=== PATIENT | female | born 1930 | race Hispanic/Latino ===

== ENCOUNTER 2018-04-03 14:00 | Inpatient (IN) | payer MEDICARE ==
[~2018-04-03] VITALS: Ht 157.5 cm; Wt 50.9 kg
[2018-04-03 13:13] LABS: APPEARANCE,URINE Clear (CLEAR); BILIRUBIN,URINE Negative (NEGATIVE); COLOR,URINE Yellow (YELLOW); GLUCOSE, URINE (UA) Negative (NEGATIVE); KETONES,URINE Negative (NEGATIVE); LEUKOCYTE ESTERASE ,URINE Large (NEGATIVE); NITRATE,URINE Positive (NEGATIVE); OCCULT BLOOD,URINE Small (NEGATIVE); PH,URINE 8.5 (5.0-8.0); PROTEIN,URINE Negative (NEGATIVE); UROBILINOGEN,URINE 0.2 mg/dL (0.2-1.0)
[2018-04-03 13:13] LABS: BASOPHILS % (AUTO) 0.4 % (0.0-5.0); EOSINOPHILS % (AUTO) 1.2 % (0.0-8.0); HEMATOCRIT 36.7 % (36-48); LYMPHOCYTES % (AUTO) 10.5 % (21.0-51.0); MEAN CORPUSCULAR HEMOGLOBIN 29.5 pg (27.0-33.0); MEAN CORPUSCULAR HGB CONC 32.7 g/dL (32.0-36.0); MEAN CORPUSCULAR VOLUME 90.1 fL (79-99); MONOCYTES % (AUTO) 3.5 % (3.0-13.0); NEUTROPHILS % (AUTO) 84.4 % (40.0-77.0); PLATELET COUNT (AUTO) 191 K/uL (130-400); RED BLOOD CELL COUNT(AUTO) 4.08 MIL/uL (4.00-5.50); RED CELL DISTRIBUTION WIDTH 14.8 % (11.0-15.5); WHITE BLOOD COUNT (AUTO) 6.3 K/uL (4.8-10.8)
[2018-04-03 13:19] LABS: CREATININE 0.8 mg/dL (0.5-1.5)
[2018-04-03 13:21] VITALS: BP 138/64
[2018-04-03 13:21] LABS: MUCUS,URINE Rare LPF (None Seen); SQUAMOUS EPITHELIAL CELL,UR Rare /HPF (0-2)
[2018-04-03 13:24] LABS: BACTERIA,URINE Moderate /HPF (None Seen)
[2018-04-03 13:28] LABS: INR 1.01 (0.85-1.15); PARTIAL THROMBOPLASTIN TIME 24.5 SEC (26.3-35.5); PROTHROMBIN TIME 10.6 SEC (9.6-11.6)
[2018-04-03] MEDS ORDERED: LEVO100T12 PO (14:25)
[2018-04-03] MEDS ORDERED: LOSA100T20 PO (14:25)
[2018-04-03] MEDS ORDERED: SOLI5 PO (14:25)
[2018-04-03] MEDS ORDERED: DILT240T13 PO (14:25)
[2018-04-03] MEDS ORDERED: SIMV20TA6 PO (14:25)
[2018-04-03] MEDS ORDERED: PRED1TAB PO (14:25)
[2018-04-04] MEDS: CEFAZOLIN SODIUM 1 GM VIAL IVP SCH (16:45)
[2018-04-05] MEDS: CEFAZOLIN SODIUM 1 GM VIAL IVP SCH (16:45)
[2018-04-06] VITALS (21 sets, daily range): BP systolic 115–166; BP diastolic 44–77
[2018-04-06] MEDS ORDERED: LACTATED RINGERS 1000ML 1,000 ML IV ONE (07:52)
[2018-04-06] MEDS: CEFAZOLIN SODIUM 1 GM VIAL IVP SCH ×5 (08:30→17:28)
[2018-04-06] MEDS ORDERED: ACETAMINOPHEN EXTRA STRENGTH 500 MG TABLET ONE (08:40)
[2018-04-06] MEDS ORDERED: KETOROLAC TROMETHAMINE 15MG/ML ONE (08:40)
[2018-04-06] MEDS ORDERED: OXYCODONE HCL 10 MG TAB.SR.12H PO ONE (08:41)
[2018-04-06] MEDS ORDERED: CELECOXIB 200 MG CAP ONE (08:41)
[2018-04-06] MEDS ORDERED: SCOPOLAMINE HYDROBROMIDE 1 EACH ADH..PATCH TD ONE (08:48)
[2018-04-06] MEDS: GENTAMICIN SULFATE 240 MG in SODIUM CHLORIDE 0.9% 100 ML IV SCH (09:02)
[2018-04-06] MEDS ORDERED: LIDOCAINE PF 2% 5ML ABBOJECT ONE (09:28)
[2018-04-06] MEDS ORDERED: DEXAMETHASONE SOD PHOSPHATE 10MG/ML 1ML VIAL ONE (09:28)
[2018-04-06] MEDS ORDERED: ONDANSETRON HCL 4 MG/2 ML VIAL ONE (09:28)
[2018-04-06] MEDS ORDERED: MIDAZOLAM HCL 1 MG/ML 2ML VIAL ONE (09:29)
[2018-04-06] MEDS ORDERED: PROPOFOL 10 MG/ML 20ML VIAL IV ONE (09:29)
[2018-04-06] MEDS ORDERED: FENTANYL CITRATE PF 50 MCG/1 ML 2ML VIAL ONE (09:30)
[2018-04-06] MEDS ORDERED: BUPIVACAINE/EPI/PF 0.5% 30ML VIAL IJ ONE (09:55)
[2018-04-06] MEDS: TRANEXAMIC ACID 1000MG/10ML IV ONE ×2 (10:05→12:30)
[2018-04-06] MEDS ORDERED: ROCURONIUM 10MG/1ML SYR 10 MG/ML ML ONE (10:13)
[2018-04-06] MEDS ORDERED: EPHEDRINE SULFATE 50 MG/ML AMPULE ONE (11:53)
[2018-04-06] MEDS ORDERED: GLYCOPYRROLATE 1 MG/5 ML SYRINGE ONE (12:03)
[2018-04-06] MEDS ORDERED: NEOSTIGMINE 5MG/5ML SYR IV ONE (12:04)
[2018-04-06] MEDS ORDERED: PHENYLEPHRINE HCL 10 MG/ML 1ML VIAL IV ONE (12:05)
[2018-04-06] MEDS: ACETAMINOPHEN EXTRA STRENGTH 500 MG TABLET PO SCH ×2 (12:15→21:00)
[2018-04-06] MEDS ORDERED: FERROUS FUMARATE 324 MG TABLET PO PRN (12:15)
[2018-04-06] MEDS ORDERED: TRAMADOL HCL 50 MG TABLET PO PRN (12:15)
[2018-04-06] MEDS ORDERED: LIDOCAINE HCL-MPF 1% 2ML VIAL IVP PRN (12:15)
[2018-04-06] MEDS ORDERED: OXYCODONE HCL 5 MG TAB PO PRN ×2 (12:15)
[2018-04-06] MEDS ORDERED: POTASSIUM CHLORIDE 20MEQ/100ML 100 ML IV PRN (12:15)
[2018-04-06] MEDS ORDERED: TEMAZEPAM 15 MG CAPSULE PO PRN (12:15)
[2018-04-06] MEDS ORDERED: ONDANSETRON HCL 4 MG/2 ML VIAL IVP PRN (12:15)
[2018-04-06] MEDS ORDERED: POTASSIUM CHLORIDE 10% ELIXIR 20 MEQ/15 ML UDCUP PO PRN (12:15)
[2018-04-06] MEDS ORDERED: POTASSIUM CHLORIDE 20 MEQ ERTAB PO PRN (12:15)
[2018-04-06] MEDS ORDERED: DiphenhydrAMINE HCL 50 MG/ML VIAL IVP PRN (12:15)
[2018-04-06] MEDS ORDERED: CALCIUM CARBONATE 500 MG TABLET PO PRN (12:15)
[2018-04-06] MEDS: SODIUM CHLORIDE 0.9% 1000ML 1,000 ML IV SCH ×2 (13:30→21:01)
[2018-04-06] MEDS: CELECOXIB 200 MG CAP PO SCH (20:49)
[2018-04-06] MEDS: ASPIRIN 325 MG TABLET PO SCH (20:49)
[2018-04-06] MEDS: FAMOTIDINE 20MG TAB 20 MG TAB PO SCH (20:49)
[2018-04-06] MEDS: SIMVASTATIN 20 MG TABLET PO SCH (20:49)
[2018-04-06] MEDS: KETOROLAC TROMETHAMINE 15MG/ML IV PRN (21:00)
[2018-04-07] MEDS: CEFAZOLIN SODIUM 1 GM VIAL IVP SCH (00:05)
[2018-04-07 00:12] VITALS: BP 116/52
[2018-04-07] MEDS: KETOROLAC TROMETHAMINE 15MG/ML IV PRN (03:11)
[2018-04-07] MEDS: ACETAMINOPHEN EXTRA STRENGTH 500 MG TABLET PO SCH ×3 (03:11→19:52)
[2018-04-07 04:12] VITALS: BP 142/57
[2018-04-07 04:41] LABS: HEMATOCRIT 29.9 % (36-48); MEAN CORPUSCULAR HEMOGLOBIN 30.7 pg (27.0-33.0); MEAN CORPUSCULAR HGB CONC 34.3 g/dL (32.0-36.0); MEAN CORPUSCULAR VOLUME 89.4 fL (79-99); PLATELET COUNT (AUTO) 149 K/uL (130-400); RED BLOOD CELL COUNT(AUTO) 3.34 MIL/uL (4.00-5.50); RED CELL DISTRIBUTION WIDTH 14.6 % (11.0-15.5); WHITE BLOOD COUNT (AUTO) 7.7 K/uL (4.8-10.8)
[2018-04-07 05:04] LABS: CREATININE 0.8 mg/dL (0.5-1.5); POTASSIUM 3.8 mmol/L (3.5-5.1)
[2018-04-07] MEDS: GENTAMICIN SULFATE 240 MG in SODIUM CHLORIDE 0.9% 100 ML IV SCH (05:38)
[2018-04-07] MEDS: LEVOTHYROXINE 100 MCG TABLET PO SCH (05:48)
[2018-04-07] MEDS: ASPIRIN 325 MG TABLET PO SCH ×2 (07:58→19:53)
[2018-04-07] MEDS: GENTAMICIN 80 MG/NS 100 ML PB 100 ML IV SCH (07:58)
[2018-04-07] MEDS: CELECOXIB 200 MG CAP PO SCH ×2 (07:59→19:53)
[2018-04-07] MEDS: POLYETHYLENE GLYCOL 3350 17 GM POWD.PACK PO SCH (07:59)
[2018-04-07] MEDS: DILTIAZEM HCL 120 MG CAP.SR.24H PO SCH (07:59)
[2018-04-07] MEDS: FAMOTIDINE 20MG TAB 20 MG TAB PO SCH ×2 (07:59→19:53)
[2018-04-07] MEDS: LOSARTAN 100 MG TABLET PO SCH (07:59)
[2018-04-07] MEDS: SODIUM CHLORIDE 0.9% 1000ML 1,000 ML IV SCH (08:02)
[2018-04-07 08:36] VITALS: BP 137/60
[2018-04-07] MEDS ORDERED: GENTAMICIN SULFATE/PF 10 MG/1 ML 2ML IV SCH (09:00)
[2018-04-07] MEDS: PREDNISONE 1 MG TAB PO SCH (09:43)
[2018-04-07 11:32] VITALS: BP 133/67
[2018-04-07] MEDS: ***HM***(Solifenacin Succinate (Vesicare) 5 MG) PO SCH (13:23)
[2018-04-07 16:49] VITALS: BP 132/61
[2018-04-07] MEDS: SIMVASTATIN 20 MG TABLET PO SCH (19:54)
[2018-04-07 20:08] VITALS: BP 150/65
[2018-04-08 00:08] VITALS: BP 140/55
[2018-04-08 04:06] VITALS: BP 125/54
[2018-04-08] MEDS: ACETAMINOPHEN EXTRA STRENGTH 500 MG TABLET PO SCH ×2 (04:14→12:37)
[2018-04-08] MEDS: LEVOTHYROXINE 100 MCG TABLET PO SCH (06:01)
[2018-04-08 08:00] VITALS: BP 131/53
[2018-04-08] MEDS: POLYETHYLENE GLYCOL 3350 17 GM POWD.PACK PO SCH (08:16)
[2018-04-08] MEDS: DILTIAZEM HCL 120 MG CAP.SR.24H PO SCH (08:17)
[2018-04-08] MEDS: LOSARTAN 100 MG TABLET PO SCH (08:17)
[2018-04-08] MEDS: ASPIRIN 325 MG TABLET PO SCH (08:17)
[2018-04-08] MEDS: PREDNISONE 1 MG TAB PO SCH (08:17)
[2018-04-08] MEDS: FAMOTIDINE 20MG TAB 20 MG TAB PO SCH (08:18)
[2018-04-08] MEDS: KETOROLAC TROMETHAMINE 15MG/ML IV PRN ×2 (08:18→14:16)
[2018-04-08] MEDS: CELECOXIB 200 MG CAP PO SCH (08:18)
[2018-04-08] MEDS: ***HM***(Solifenacin Succinate (Vesicare) 5 MG) PO SCH (08:19)
[2018-04-08] MEDS: GENTAMICIN 80 MG/NS 100 ML PB 100 ML IV SCH (08:19)
[2018-04-08] MEDS ORDERED: HYDR-4457 PO (10:59)
[2018-04-08] MEDS ORDERED: ASPI-1012 PO (10:59)
[2018-04-08 12:04] VITALS: BP 126/52
[2018-04-08 17:26] VITALS: BP 138/49
[2018-04-08] MEDS ORDERED: BISACODYL 10 MG SUPP.RECT RC ONE (18:10)
[2018-04-09] MEDS ORDERED: BISACODYL 10 MG SUPP.RECT RC PRN (12:15)
== END 2018-04-08 19:55 | DRG 470 ==
LOC: DAHIP 04-06 07:14 → 4AH 04-06 13:11
PROVIDERS: ADMIT Orthopaedic Surgery; ATTEND Orthopaedic Surgery
PROC: 0SRD0J9 Replacement of Left Knee Joint with Synthetic Substitute, Cemented, Open Approach (ICD-10-PCS; principal; 2018-04-06 09:45)
DX: M17.12 Unilateral primary osteoarthritis, left knee (principal); M21.062 Valgus deformity, not elsewhere classified, left knee; I10 Essential (primary) hypertension; H26.9 Unspecified cataract; M06.9 Rheumatoid arthritis, unspecified; E03.9 Hypothyroidism, unspecified; E78.5 Hyperlipidemia, unspecified; G89.29 Other chronic pain
CPT/HCPCS: 36415; 80048; 81001; 85025; 85027; 85610; 85730; 88305; 88311; 96360; 96365; A4218; J0690; J1100; J1580; J1885; J2001; J2250; J2370; J2405; J2704; J2710; J3010; J3490; J7120; J7512